=== PATIENT | male | born 1955 | race Caucasian/White ===

== ENCOUNTER 2020-04-16 07:18 | Outpatient (CLI) | payer MEDICARE, SELFPAY ==
--- NOTE | ~2020-04-16 | CT_ITS ---
EXAMINATION: CT lung screening DATE: 04/16/2020 08:07 INDICATION: History of tobacco dependence TECHNIQUE: Computed tomography (CT) of the chest was performed without intravenous contrast. The dose -length product was 419.42 mGy-cm. Automated exposure control and iterative reconstruction technique were employed. COMPARISON: CT dated 11/12/2016 FINDINGS: There is a small pericardial effusion. There are trace pleural effusions. Heart size is nor mal. There is atherosclerosis. There are calcified granulomas of the spleen. There are stable bilater al adrenal thickening consistent with hyperplasia. There are a few calcified granulomas of the lung p arenchyma. No thoracic lymphadenopathy. Stable 3 mm right upper lobe nodule, image 45. Stable left lo wer lobe 2 mm nodule, image 90. No focal airspace consolidation. No pneumothorax. No new pulmonary no dules or masses. IMPRESSION: 1. Lung-RADS category 2: Benign appearance or behavior. Continue annual screening with noncontrast lo w-dose chest CT in 12 months. Reviewed, dictated and finalized at location A. CTOR PRODUCT SAFETY IMPRESSION: 1. Lung-RADS category 2: Benign appearance or behavior. Continue annual screeni ng with noncontrast low-dose chest CT in 12 months.
--- NOTE | ~2020-04-16 | US_ITS ---
EXAMINATION: US aorta [facility] DATE: 04/16/2020 07:58 LACING PRESSER INDICATION: Screening examination TECHNIQUE: Grayscale, color Doppler, and pulsed Doppler images of the aorta and common iliac arteries were obtained. COMPARISON: None. FINDINGS: The proximal aorta measures 2.2 cm greatest sagittal dimension. The mid aorta measures 2.[address] sagittal dimension. The distal aorta is obscured by bowel gas. The iliac arteries are not visualiz ed. IMPRESSION: 1. Limited examination of the distal abdominal aorta and iliac arteries due to bowel gas. No aneurysm identified. Reviewed, dictated and finalized at location A. NG PRESSER
== END 2020-04-16 07:19 | disposition home or self-care (01) ==
PROVIDERS: PCP Family Medicine; Visit Provider Family Medicine
DX: Z12.2 Encounter for screening for malignant neoplasm of respiratory organs (principal); Z87.891 Personal history of nicotine dependence
CPT/HCPCS: 71271; 76706

== ENCOUNTER 2020-05-09 08:12 | Outpatient (CLI) | payer MEDICARE, SELFPAY ==
[2020-05-09 08:55] LABS: Anion Gap 5 mmol/L (8-16); Blood Urea Nitrogen 15 mg/dL (9-20); Calcium 9.4 mg/dL (8.4-10.2); Carbon Dioxide 32 mmol/L (22-30); Chloride 106 mmol/L (98-107); Estimated Glomerular Filt Rate > 60; Glucose 125 mg/dL (75-110); Potassium 4.1 mmol/L (3.4-5.0); Sodium 143 mmol/L (137-145)
== END 2020-05-09 08:13 | disposition home or self-care (01) ==
PROVIDERS: Anesthesiology; PCP Family Medicine; Visit Provider Plastic Surgery
DX: E11.9 Type 2 diabetes mellitus without complications (principal); Z01.812 Encounter for preprocedural laboratory examination
CPT/HCPCS: 36415; 80048

== ENCOUNTER 2020-05-12 00:22 | Outpatient (CLI) | payer MEDICARE, SELFPAY ==
[2020-05-12 17:34] LABS: SARS-CoV-2 RNA PCR Negative
== END 2020-05-12 00:23 | disposition home or self-care (01) ==
LOC: ANHCOVIDDT 00:22
PROVIDERS: PCP Family Medicine; Visit Provider Plastic Surgery
DX: Z01.812 Encounter for preprocedural laboratory examination (principal); Z20.822 Contact with and (suspected) exposure to COVID-19
CPT/HCPCS: C9803; U0003; U0005

== ENCOUNTER 2020-05-15 00:26 | Day surgery (SDC) | payer MEDICARE, SELFPAY ==
[2020-05-07 16:18] VITALS: BMI 36.4
--- NOTE | 2020-05-15 07:06 | WPDHPUPDATE1 ---
History and Physical Update Update Date/Time: 05/15/20 07:06 History and Physical has been reviewed, including an updated exam of the patient. There are NO changes in the patient's condition. Risks, benefits, and alternatives have been discussed and questions answered. Patient agrees to proceed with procedure.
[2020-05-15 07:11] VITALS: BP 149/67; PULSE 81; RESP 20; TEMP 36.9; O2SAT 98
[2020-05-15] MEDS: LACTATED RINGERS 1,000 ML 30 ML IV CONT (08:25)
[2020-05-15 08:35] LABS: Glucose Point of Care 150 (65-105)
--- NOTE | 2020-05-15 08:39 | WPDANESEPPF ---
Anes - Initial Pre Proc Eval Procedure: Operation Date: 05/15/20 09:00 Proposed Procedures p Right Ulnar Neuroplasty at Elbow - Tarik Batista MD Date/Time: 05/15/20 08:39 Surgeon: Tarik Batista MD Pre Op Diagnosis: right cubital tunnel syndrome Patient Data Age: 65 Gender: M Height: 6 ft 2 in Weight: 128.85 kg Allergies Allergy/AdvReac Type Severity Reaction Status Date / Time No Known Allergies Allergy Unknown Verified 05/15/20 08:21 Home Medications Medication Instructions Recorded Confirmed Type hydrocodone 5 mg-acetaminophen 325 1 tablet PO Q6-8H PRN tablet 02/20/19 05/07/20 History mg tablet polyethylene glycol 3350 17 17 gm PO DAILY 02/20/19 05/15/20 History gram/dose oral powder dapagliflozin 10 mg tablet See Rx Instructions .ROUTE 10/30/19 05/15/20 Rx .COMPLEX #90 tablet simvastatin 10 mg tablet 10 mg PO DAILY #90 tablet 10/30/19 05/15/20 Rx fluticasone propionate 50 1 spray NASAL DAILY #54.6 ml 02/14/20 05/15/20 Rx mcg/actuation nasal spray,suspension sitagliptin 50 mg tablet 50 mg PO DAILY #90 tablet 02/14/20 05/15/20 Rx amlodipine 10 mg tablet 10 mg PO DAILY #90 tablet 02/27/20 05/15/20 Rx metformin 500 mg tablet 500 mg PO BID #180 tablet 04/16/20 05/15/20 Rx glimepiride 2 mg tablet 2 mg PO BID #180 tablet 04/24/20 05/15/20 Rx lisinopril 40 mg tablet 40 mg PO DAILY #90 tablet 04/24/20 05/15/20 Rx terazosin 2 mg capsule 2 mg PO .qhs #90 cap 04/24/20 05/15/20 Rx furosemide 40 mg PO DAILY 05/07/20 05/15/20 History glucos sul 7ODo-hlm-mqfzs-C-Mn 2 cap PO BID 05/07/20 05/15/20 History [Glucosamine Chondroitin] bllbqwmataav-hma-pnuw-FA-vit K 1 tablet PO DAILY 05/07/20 05/15/20 History [Adults Multivitamin] temazepam 22.5 mg PO PRN PRN 05/07/20 05/15/20 History Laboratory Tests 05/15/20 08:20 POC Capillary Glucose 150 mg/dl H mg/dl (65-105) Patient hx anesthesia problems: none Family hx anesthesia problems: none PMFSH Past Medical History Medical History (Updated 11/02/19 @ 12:06 by Elvi Pang, PALindsayC) Chronic insomnia Essential (primary) hypertension Fatty liver History of colon polyps HLD (hyperlipidemia) Type 2 diabetes mellitus without complications Surgical History Surgical History (Updated 02/20/19 @ 09:50 by Efren Juares, PALindsayC) H/O sinus surgery H/O wrist surgery Family History Family History (Updated 11/30/17 @ 07:47 by DOCTOR UNKNOWN) Sibling Diabetes mellitus Mother Family history of malignant neoplasm Social History Social History (Updated 03/24/20 @ 10:38 by Junie Sweeney) Smoking packs per day: 1 Smoking cigarettes per day: 20.0 Years smoked: 30 Smoking pack-years: 30.00 Smoking status: Current every day smoker Tobacco type: cigarettes Second hand tobacco smoke exposure: No Additional smoking assessment comments: NOW ONLY SMOKES 2 CIGARETTES PER DAY Alcohol intake: current Drinks per week: 2 Substance use: never Substance use type: does not use Living arrangements: with friend(s) Gender identity (if verbalized by the patient): Male Spiritual care concerns: No Anes - Eval Final PreProcedure Day of Procedure 05/15/20 08:39 Patient weight: morbidly obese Heart: regular rate and rhythm Lungs: clear to auscultation Airway: Mallampati scale class III Neurological: alert and oriented Last oral intake: >/= 8 hours ASA classification: IV Emergent: no Anesthetic plan: proceed Anesthesia type and monitoring: general GIVS (may use LMA if needed) and standard monitoring Informed Consent: The patient's anesthetic plan and its attendant risks and benefits were discussed with the patient/family/POA. Questions were solicited and answers provided to the satisfaction of the patient/family/POA.
[2020-05-15] MEDS: LIDO 1%/EPINEPHRINE 1:100,000 50 ML VIAL 20 ML INFILTRATE (09:44)
[2020-05-15] MEDS: BACITRACIN OINTMENT 15 GM TUBE 1 APPLIC TOPICAL (10:11)
--- NOTE | 2020-05-15 10:17 | SUR.OPER ---
Ebl=5ml
[2020-05-15 10:23] VITALS: BP 131/87; PULSE 94; RESP 14; O2SAT 95
[2020-05-15 10:27] LABS: Glucose Point of Care 152 (65-105)
--- NOTE | 2020-05-15 10:40 | P.OPB_ITS ---
Procedure Note - Brief Procedure Note - Brief Date of procedure: 05/15/20 Pre-op diagnosis: right cubital tunnel syndrome Post-op diagnosis: same Procedure performed: R ulnar neuroplasty Anesthesia: MAC Surgeon: Tarik Batista MD Dialysis Social Worker: Moises Estimated blood loss (mL): 3 Tourniquet time (min): 18 Drains: No Packing: No Pathology: none sent Complications: No immediate complications Condition: stable Disposition: same day
[2020-05-15 10:53] VITALS: BP 123/70; PULSE 95; RESP 14; O2SAT 96
[2020-05-15 11:20] VITALS: BP 121/72; PULSE 67; RESP 14
--- NOTE | 2020-05-15 11:21 | PM.PROC ---
Procedure Note - Detailed Date of procedure: 05/15/20 Pre-op diagnosis: right cubital tunnel syndrome Post-op diagnosis: same Procedure performed: Right ulnar neuroplasty Description of procedure: The right elbow marked in the holding area. The patient was taken to the operating room placed supine on the operating table. A time-out was held and confirmed. The patient was given IV sedation and the extremity was prepped and draped in usual fashion. The tourniquet was applied. The elbow was flexed and supported on folded towels. The course of the ulnar nerve was marked and cross hatched. This was infiltrated with 1% lidocaine with epinephrine in the subcutaneous tissue. The tourniquet was inflated to 250 mmHg. The incision was made as marked. Dissection was carried through the subcutaneous tissue with sharp and blunt dissection. The interval between the triceps muscle and the medial epicondyle was incised revealing the ulnar nerve. Proximally there was very little compression but this was cleared. Distally the nerve was followed under Dee ligament which proved to be very tight on the nerve. The compression seemed to appear to continue under the muscle fascia. This was incised several cm. At that point the nerve did not sublux. The bleeding points were electrocoagulated. The wound was closed with intradermal 3-0 Monocryl several cross hatching juarez. The skin was closed with a running 3-0 intradermal Monocryl suture. The usual bandage was applied and the patient was discharged with instructions in wound care and follow-up in stable condition. A prescription for hydrocodone number 10 was sent to the patient's pharmacy. Surgeon: Tarik Batista MD
== END 2020-05-15 11:30 | disposition home or self-care (01) ==
PROVIDERS: PCP Family Medicine; Visit Provider Plastic Surgery
PROC: (CPT 64718; principal; 2020-05-15 09:00)
DX: G56.21 Lesion of ulnar nerve, right upper limb (principal); E11.9 Type 2 diabetes mellitus without complications; I10 Essential (primary) hypertension; E78.5 Hyperlipidemia, unspecified; K76.0 Fatty (change of) liver, not elsewhere classified; Z79.84 Long term (current) use of oral hypoglycemic drugs; F17.210 Nicotine dependence, cigarettes, uncomplicated; E66.01 Morbid (severe) obesity due to excess calories; Z68.37 Body mass index [BMI] 37.0-37.9, adult
CPT/HCPCS: 64718; 36415; 80048; 82948; A9270; C9803; J2405; J2704; J7120; U0003; U0005

== ENCOUNTER → 2020-07-15 07:02 | Outpatient (CLI) | payer MEDICARE, SELFPAY ==
[2020-07-15 19:03] LABS: SARS-CoV-2 RNA PCR Negative
== END ==
PROVIDERS: PCP Family Medicine; Visit Provider Physician Assistant
DX: R05 Cough (principal); Z20.822 Contact with and (suspected) exposure to COVID-19
CPT/HCPCS: C9803; U0003; U0005

== ENCOUNTER 2020-07-18 11:49 | Outpatient (CLI) | payer MEDICARE, SELFPAY | END 2020-07-18 11:50 | disposition home or self-care (01) | LOC: ANHCOVIDVC 11:49 | PROVIDERS: PCP Family Medicine | DX: Z23 Encounter for immunization (principal) | CPT/HCPCS: 0001A; 91300 ==

== ENCOUNTER 2020-08-08 11:26 | Outpatient (CLI) | payer MEDICARE, SELFPAY | END 2020-08-08 11:27 | disposition home or self-care (01) | LOC: ANHCOVIDVC 11:27 | PROVIDERS: PCP Family Medicine | DX: Z23 Encounter for immunization (principal) | CPT/HCPCS: 0002A; 91300 ==

== ENCOUNTER 2020-10-01 14:57 | Outpatient (CLI) | payer MEDICARE, SELFPAY ==
--- NOTE | ~2020-10-01 | US_ITS ---
EXAMINATION: US carotid duplex BI DATE: 10/01/2020 15:39 INDICATION: Carotid atherosclerosis with abnormal lifeline screening. TECHNIQUE: Grayscale, color Doppler, and pulsed Doppler images of the cervical carotid arteries were obtained. The degree of vessel stenosis is placed in one of the following categories: normal, <50%, 5 0-69%, >=70% but less than near-occlusion, near-occlusion, or total occlusion. Note that percent sten osis relative to normal distal artery lumen diameter is indirectly measured from velocity measurement s as described by Brandon, et al. Radiology 2003; [id number]:340-346. COMPARISON: None. FINDINGS: RIGHT: The right common carotid artery (CCA) peak systolic velocity (PSV) is 83 cm/s. The right internal car otid artery (ICA) PSV is 73 cm/s. The right ICA end-diastolic velocity (EDV) is 29 cm/s. The right IC A/CCA PSV ratio is 0.9. Grayscale and color Doppler images yield an estimate of <50% diameter reducti on from plaque in the ICA. The external carotid artery (ECA) PSV is 138 cm/s. There is antegrade flow in the right vertebral artery. LEFT: The left CCA PSV is 108 cm/s. The left ICA PSV is 61 cm/s. The left ICA EDV is 16 cm/s. The left ICA/ CCA PSV ratio is 0.6. Grayscale and color Doppler images yield an estimate of <50% diameter reduction from plaque in the ICA. The ECA PSV is 81 cm/s. There is antegrade flow in the left vertebral artery . IMPRESSION: 1. <50% stenosis in the right internal carotid artery. 2. <50% stenosis in the left internal carotid artery. Reviewed, dictated and finalized at location A.
== END 2020-10-01 14:58 | disposition home or self-care (01) ==
PROVIDERS: PCP Family Medicine; Visit Provider Family Medicine
DX: I65.23 Occlusion and stenosis of bilateral carotid arteries (principal)
CPT/HCPCS: 93880

== ENCOUNTER 2020-11-05 11:09 | Outpatient (CLI) | payer MEDICARE, SELFPAY ==
--- NOTE | ~2020-11-05 | XR_ITS ---
XR toe 2nd LT min 2V 11/05/2020 11:35 Indication: Left second toe pain. No known injury. History of diabetes. Procedure: 3 views left second toe Comparison: No prior studies for comparison. Findings: Osteopenia. No fracture, subluxation or dislocation. No evidence for osteomyelitis. No fore ign bodies. There are vascular calcifications. No periosteal reaction or erosive changes. Mild polyar ticular osteoarthritis. Impression: 1: No acute bone or joint abnormality. Reviewed, dictated and finalized at location A. Impression: 1: No acute bone or joint abnormality.
--- NOTE | ~2020-11-05 | XR_ITS ---
EXAMINATION: XR chest 2V EXAM DATE: 11/05/2020 11:35 INDICATION: R05 - Cough X 6 WKS . TECHNIQUE: Frontal and lateral projections of the chest obtained and reviewed. Comparison is made to prior examination from 01/24/2019. FINDINGS: Left upper lobe granuloma. The lungs are otherwise clear. There are no pleural effusions. The cardiomediastinal silhouette is within normal limits. There is no pneumothorax suspected. The bones and soft tissues are unremarkable. IMPRESSION: No acute cardiopulmonary findings. Reviewed, dictated and finalized at location B.
== END 2020-11-05 11:10 | disposition home or self-care (01) ==
PROVIDERS: PCP Family Medicine; Visit Provider Physician Assistant
DX: R07.89 Other chest pain (principal); R05 Cough; M79.675 Pain in left toe(s)
CPT/HCPCS: 71046; 73660

== ENCOUNTER 2020-11-25 11:37 | Outpatient (CLI) | payer MEDICARE, SELFPAY ==
--- NOTE | ~2020-11-25 | XR_ITS ---
XR lumbar spine min 4V DATE: 11/25/2020 12:01 INDICATION: Right low back pain. No known injury. TECHNIQUE: AP, lateral, coned lateral lumbosacral and bilateral oblique views COMPARISON: None FINDINGS: Diffuse osteopenia. There is mild dextro scoliosis of the thoracolumbar spine. The included lower thoracic and lumbar pedicles are intact. No fracture or bone destruction of the bethany mbar spine is evident. There is degenerative change at the apophyseal joints particularly at the lower lumbar and lumbosacra l area. There is no associated spondylolisthesis. Mild degenerative disc disease in the upper lumbar spine, moderate degenerative disc disease at L3-4, severe degenerative disc disease at L4-5 and relative sparing of the L5-S1 interspace. The sacroiliac joints are intact. IMPRESSION: Multilevel degenerative disc disease, most pronounced at L4-5, relatively sparing L5-S1 Diffuse osteopenia Degenerative change at the apophyseal joints Mild scoliosis Reviewed, dictated and finalized at location A. IMPRESSION: Multilevel degenerative disc disease, most pronounced at L4-5, rela tively sparing L5-S1 Diffuse osteopenia Degenerative change at the apophyseal joints Mild scoliosis
== END 2020-11-25 11:38 | disposition home or self-care (01) ==
LOC: ANHIMG 11:39
PROVIDERS: PCP Family Medicine; Visit Provider Physician Assistant
DX: M51.36 Other intervertebral disc degeneration, lumbar region (principal); M85.88 Other specified disorders of bone density and structure, other site; M41.9 Scoliosis, unspecified
CPT/HCPCS: 72110

== ENCOUNTER 2021-01-19 12:58 | Outpatient (CLI) | payer MEDICARE, SELFPAY ==
--- NOTE | ~2021-01-19 | MR_ITS ---
EXAMINATION: MR lumbar spine wo con DATE: 01/19/2021 13:39 INDICATION: Low back pain. TECHNIQUE: Magnetic resonance imaging (MRI) of the lumbar spine was performed without intravenous con trast. Sequences included sagittal T2-weighted FSE, sagittal T2-weighted FS FSE, sagittal T1-weighted FSE, and axial T2-weighted FSE. COMPARISON: Lumbar spine radiographs 11/25/2020 FINDINGS: There is 10 degrees levoscoliosis of lumbar spine. There is mild chronic height loss of L4 vertebral body. There is mildly decreased disc height at L3-L4 and severely decreased disc height at L4-L5 with endplate remodeling. The distal spinal cord signal intensity is normal. The conus medullar is is at T12-L1. The following disc levels are specifically discussed: L1-L2: The disc does not extend beyond the endplate margin. There is moderate bilateral facet joint o steoarthritis. There is no neural foraminal stenosis. There is no central canal stenosis. L2-L3: The disc does not extend beyond the endplate margin. There is moderate bilateral facet joint o steoarthritis. There is no neural foraminal stenosis. There is no central canal stenosis. L3-L4: The disc is bulging and has an annular fissure. There is severe bilateral facet joint osteoart hritis. There is moderate right and mild left neural foraminal stenosis. There is moderate central ca nal stenosis. L4-L5: The disc is bulging and has an annular fissure. There is severe bilateral facet joint osteoart hritis. There is moderate bilateral neural foraminal stenosis. There is moderate central canal stenos is. L5-S1: There is a central protrusion. There is severe bilateral facet joint osteoarthritis. There is mild bilateral neural foraminal stenosis. There is mild central canal stenosis. IMPRESSION: 1. Severe lumbar spondylosis. Reviewed, dictated and finalized at location A.
== END 2021-01-19 12:59 | disposition home or self-care (01) ==
PROVIDERS: PCP Family Medicine; Visit Provider Physician Assistant
DX: M48.061 Spinal stenosis, lumbar region without neurogenic claudication (principal); M51.26 Other intervertebral disc displacement, lumbar region; M47.896 Other spondylosis, lumbar region
CPT/HCPCS: 72148

== ENCOUNTER 2021-02-05 12:41 | Outpatient (CLI) | payer MEDICARE, SELFPAY ==
--- NOTE | 2021-02-06 08:19 | WPDPFTINT ---
PFT Procedure Performed PFT Procedure Performed Plethysmography (Lung Vol) Diffusing Cap (DLCO) Flow Vol Loop Spirometry w/o Bronchodil PFT Interpretation This is a pulmonary function test with spirometry, plethysmography and diffusing capacity. The test was performed and results interpreted in accordance with the 2019 and 2005 ATS/ERS Task Force guidelines respectively using the Global Lung Function Initiative-2012 reference equations. Patient demonstrated good effort and cooperation. Reproducibility criteria were met. The quality of the spirometry maneuver was Grade A. Findings: Spirometry: the contour the inspiratory and expiratory flow tracing are normal. The FVC is 3.59 L, 79% predicted. The FEV1 is 2.72 L, 79% predicted. The FEV1: FVC ratio 76% Plethysmography: The total lung capacity is 6.98 L, 97% predicted. The functional residual capacity is 3.20 L, 84% predicted. The residual volume is 2.99 L, 124% predicted. Diffusing capacity: The absolute diffusion capacity is 27.6, 101% predicted. The diffusing capacity corrected for alveolar volume is 4.88, 122% predicted. In comparison to previous pulmonary function test in our laboratory from 10/25/2016 the pre bronchodilator FVC is unchanged from 4.05 L to 3.59 L. The pre bronchodilator FEV1 is decreased from 3.17 L to 2.72 L. The total lung capacity is decreased from 8.17 L to 6.98 L. The functional residual capacity is decreased from 4.70 L to 3.20 L. The residual volume is decreased from 3.99 L to 2.99 L. The absolute diffusing capacity is unchanged from 25.1 to 27.6. Diffusing capacity corrected for alveolar volume is unchanged from 4.37 to 4.88. Impression: The spirometry is normal without evidence of an obstructive abnormality. The lung volumes are normal. The diffusing capacity is normal. when compared to the previous pulmonary function test on 10/25/2016 there has been a greater than anticipated time dependent decrease in the pre bronchodilator FEV1 the total lung capacity, the functional residual capacity and the residual volume with no change in the pre bronchodilator FVC, absolute diffusing capacity and diffusing capacity corrected for alveolar volume. Clinical correlation is recommended There are no prior studies for comparison
== END 2021-02-05 12:42 | disposition home or self-care (01) ==
LOC: ANHPFT 12:42
PROVIDERS: PCP Family Medicine; Visit Provider Physician Assistant
DX: R07.89 Other chest pain (principal); R09.81 Nasal congestion; Z87.891 Personal history of nicotine dependence
CPT/HCPCS: 94375; 94726; 94729

== ENCOUNTER 2021-03-10 09:15 | Outpatient (RCR) | payer MEDICARE, SELFPAY ==
[2021-01-13 13:49] VITALS: BMI 35.6
[2021-01-13 13:50] VITALS: BMI 35.6
== END 2021-03-30 09:35 | disposition home or self-care (01) ==
LOC: ANHDMC 09:15
PROVIDERS: PCP Family Medicine; Visit Provider Physician Assistant
DX: E11.65 Type 2 diabetes mellitus with hyperglycemia (principal); Z71.3 Dietary counseling and surveillance; Z71.89 Other specified counseling
CPT/HCPCS: 97804; G0108